=== PATIENT | male | born 1970 | race Caucasian/White ===

== ENCOUNTER → 2019-02-24 | Outpatient (REF) ==
--- NOTE | 2019-02-25 07:27 | REP ---
REASON: Disability. COMPARISON EXAMINATION: 04/02/2014. There is S1 spina bifida occulta status quo. Vertebral body height and alignment is unchanged again seen to be within normal limits. There is mild posterior disc space narrowing status quo. There are no new abnormalities. IMPRESSION: No significant changes. Electronically Signed by Lionel Aleman DO 02/25/2019 11:57 A
== END ==
LOC: M SMT 14:11
PROVIDERS: ATTEND Internal Medicine
DX: Q05.9 Spina bifida, unspecified (principal)